=== PATIENT | female | born 1960 | race Caucasian/White ===

== ENCOUNTER 2020-12-25 06:23 | Day surgery (SDC) | payer BC ==
[2020-12-25] MEDS ORDERED: fentaNYL 100 MCG/2 ML SDV ONE (07:12)
[2020-12-25] MEDS ORDERED: Midazolam 1 MG/ML 2 ML SDV ONE (07:12)
[2020-12-25] MEDS ORDERED: Propofol 200 MG/20 ML SDV ONE (07:12)
[2020-12-25] MEDS ORDERED: Sodium Chloride 0.9% 1,000 ML IV SCH (07:15)
--- NOTE | 2020-12-25 10:43 | OR ---
DATE OF PROCEDURE: 12/25/2020 SURGEON: Saturnino Crabtree MD PROCEDURE: Colonoscopy. FINDINGS: Diverticulosis, mild to moderate, limited to sigmoid colon. No evidence of diverticulitis or bleeding. COMPLICATIONS: None. MANAGER PULMONARY: None. ANESTHESIA: MAC. PREOPERATIVE DIAGNOSIS: Screening colonoscopy. POSTOPERATIVE DIAGNOSIS: Screening colonoscopy. RISKS: Risks, benefits, alternatives, and limitations including, but not limited to, infection, bleeding, perforation, false positives, false negatives were explained to the patient who wished to proceed. PROCEDURE IN DETAIL: The patient was placed in left lateral decubitus position. Digital rectal exam was performed without abnormality. Scope was introduced and advanced atraumatically to the ileocecal valve. A photo was taken of the appendiceal orifice. The scope was brought back to the ascending, transverse, descending colon, and retroflexed. No evidence of old or new blood, no masses, no polyps. Diverticulosis was described as mild, limited to sigmoid colon, without evidence of diverticulitis or bleeding. No abnormalities on retroflexion. Greater than 8 minutes was spent removing the scope. The prep was acceptable, approximately 90% of the luminal surface could be seen. The patient tolerated the procedure well. Saturnino Crabtree MD /[id number]
== END 2020-12-25 09:15 | disposition home or self-care (01) ==
LOC: JP.SDS 06:23
PROVIDERS: ATTEND Surgery
DX: Z12.11 Encounter for screening for malignant neoplasm of colon (principal); K57.30 Diverticulosis of large intestine without perforation or abscess without bleeding; Z88.2 Allergy status to sulfonamides
CPT/HCPCS: 45378; J2250; J2704; J3010; J7030